=== PATIENT | male | born 2005 | race Caucasian/White ===

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

== ENCOUNTER 2024-02-26 12:42 | Emergency (ER) | payer OTHER ==
[~2024-02-26 12:42] MED LIST: ACET325C7 PO; IBUP-1955 PO
[2024-03-01] MEDS ORDERED: AMOX-430 PO (10:07)
[2024-03-01] MEDS ORDERED: GUAI600T53 PO (11:28)
[2024-03-01] MEDS ORDERED: ALBU8.5H8 INH (11:28)
== END 2024-02-26 13:14 | disposition home or self-care (01) ==
LOC: ER 12:46
DX: R50.9 Fever, unspecified (principal); Z53.21 Procedure and treatment not carried out due to patient leaving prior to being seen by health care provider

== ENCOUNTER 2024-02-28 21:15 | Inpatient (IN) | payer OTHER ==
[~2024-02-28] VITALS: Ht 185.4 cm; Wt 81.8 kg
[2024-02-28 22:40] LABS: BASOPHILS % (AUTO) 0.2 % (0.0-2.0); HEMATOCRIT 42 % (39-51); HEMOGLOBIN 14.1 g/dL (13.5-17.5); LYMPHOCYTES # (AUTO) 0.9 K/uL (0.8-4.8); LYMPHOCYTES % (AUTO) 14.2 % (20.0-44.0); MEAN CORPUSCULAR HEMOGLOBIN 29 PG (26.0-33.0); MEAN CORPUSCULAR HGB CONC 34 g/dl (31.0-36.0); MEAN CORPUSCULAR VOLUME 86 fL (80-96); MONOCYTES # (AUTO) 0.5 K/uL (0.1-1.30); MONOCYTES % (AUTO) 7.1 % (2.0-12.0); NEUTROPHILS # (AUTO) 5.1 K/uL (1.8-8.9); NEUTROPHILS % (AUTO) 78.5 % (43.0-81.0); PLATELET COUNT (AUTO) 158 K/uL (150-450); RED BLOOD CELL COUNT(AUTO) 4.85 MIL/uL (4.5-6.0); RED CELL DISTRIBUTION WIDTH 13.3 % (11.5-15.0); WHITE BLOOD COUNT (AUTO) 6.5 K/uL (4.3-11.0)
[2024-02-28 22:45] LABS: ERYTHROCYTE SEDIMENTATION RATE 34 MM/HR (0-15)
[2024-02-28 22:59] LABS: LACTIC ACID 0.8 mmol/L (0.4-2.0)
[2024-02-28 23:24] LABS: ALBUMIN 3.4 g/dL (3.4-5.0); BILIRUBIN,TOTAL 0.3 mg/dL (0.2-1.0); CALCIUM, SERUM 9.2 mg/dL (8.5-10.1); TOTAL PROTEIN, SERUM 7.6 g/dL (6.4-8.2)
[2024-02-28 23:28] LABS: APPEARANCE,URINE CLEAR (CLEAR); BILIRUBIN,URINE NEGATIVE (NEGATIVE); BLOOD, URINE TRACE Ery/uL (NEGATIVE); COLOR,URINE YELLOW (YELLOW); KETONES,URINE NEGATIVE (NEGATIVE); LEUKOCYTE ESTERASE ,URINE NEGATIVE (NEGATIVE); NITRITE, URINE NEGATIVE (NEGATIVE); PH,URINE 6.5 (5.0-8.0); PROTEIN,URINE NEGATIVE (NEGATIVE); UGLUCOSE NEGATIVE (NEGATIVE); UROBILINOGEN,URINE 0.2 EU/dL (0.2)
[2024-02-28 23:48] LABS: RBC,URINE 0-2 /HPF (0-2)
[2024-02-28 23:49] LABS: ADD URINE CULTURE NO; BACTERIA,URINE None seen /HPF (None Seen); SQUAMOUS EPITHELIAL CELL,UR None Seen /HPF (None Seen); WBC,URINE NONE SEEN /HPF (0-3)
[2024-02-29] MEDS ORDERED: PIPERACI/TAZO 3.375GM/D5W 50ML PB IV ONE (00:30)
[2024-02-29] MEDS ORDERED: CT SWABBABLE VALVE TRANS SET 1 EA INFUS.SET MC ONE (00:44)
[2024-02-29] MEDS ORDERED: IV NS 0.9% 250 ML IV ONE (00:44)
[2024-02-29] MEDS ORDERED: IOHEXOL-300 100 ML VIAL IV ONE (00:44)
[2024-02-29] MEDS: IV NS 0.9% 1,000 ML IV ONE (00:48)
[2024-02-29] MEDS: PIPERACILLIN /TAZOBACTAM 3.375 G in IV D5W 50 ML IV ONE (00:49)
[2024-02-29] MEDS ORDERED: Z GUARD REMEDY 4 OZ OINT TP PRN (02:30)
[2024-02-29] MEDS ORDERED: MAG HYDROX/AL HYDROX/SIMETH 30 ML UDC PO PRN (02:30)
[2024-02-29] MEDS ORDERED: ONDANSETRON HCL/PF 4 MG/2 ML VIAL IVP PRN (02:30)
[2024-02-29] MEDS ORDERED: MAGNESIUM HYDROXIDE 30 ML UDC PO PRN (02:30)
[2024-02-29] MEDS ORDERED: AZITHROMYCIN 500 MG VIAL ONE (02:37)
[2024-02-29] MEDS: AZITHROMYCIN 500 MG in IV D5W 250 ML IV ONE (02:52)
[2024-02-29] MEDS ORDERED: PANTOPRAZOLE 40 MG TABLET.DR PO ONE (07:45)
[2024-02-29] MEDS: PANTOPRAZOLE 40 MG TABLET.DR PO SCH (08:01)
[2024-02-29] MEDS ORDERED: ACET-2605 PO (08:02)
[2024-02-29] MEDS ORDERED: IBUP-1953 PO (08:02)
[2024-02-29] MEDS ORDERED: ASCO100058 PO (08:04)
[2024-02-29] MEDS ORDERED: CHOL100062 PO (08:04)
[2024-02-29] MEDS ORDERED: ZINC50TA69 PO (08:04)
[2024-02-29] MEDS ORDERED: ALBUTEROL FS 2.5 MG/3 ML VIAL.NEB ONE (08:11)
[2024-02-29 08:14] VITALS: O2SAT 97
[2024-02-29] MEDS: ALBUTEROL FS 2.5 MG/3 ML VIAL.NEB NEB PRN (08:14)
[2024-02-29 08:30] VITALS: O2SAT 100
[2024-02-29 08:48] LABS: BASOPHILS % (AUTO) 0.2 % (0.0-2.0); HEMATOCRIT 41 % (39-51); HEMOGLOBIN 13.8 g/dL (13.5-17.5); LYMPHOCYTES % (AUTO) 18.2 % (20.0-44.0); MEAN CORPUSCULAR HEMOGLOBIN 29 PG (26.0-33.0); MEAN CORPUSCULAR HGB CONC 34 g/dl (31.0-36.0); MEAN CORPUSCULAR VOLUME 86 fL (80-96); MONOCYTES # (AUTO) 0.4 K/uL (0.1-1.30); MONOCYTES % (AUTO) 6.4 % (2.0-12.0); NEUTROPHILS # (AUTO) 4.2 K/uL (1.8-8.9); NEUTROPHILS % (AUTO) 75.2 % (43.0-81.0); PLATELET COUNT (AUTO) 162 K/uL (150-450); RED BLOOD CELL COUNT(AUTO) 4.75 MIL/uL (4.5-6.0); RED CELL DISTRIBUTION WIDTH 13.4 % (11.5-15.0); WHITE BLOOD COUNT (AUTO) 5.5 K/uL (4.3-11.0)
[2024-02-29] MEDS ORDERED: ACETAMINOPHEN 325 MG TABLET ONE (09:06)
[2024-02-29] MEDS: ACETAMINOPHEN 325 MG TABLET PO PRN (09:13)
[2024-02-29 09:23] LABS: CALCIUM, SERUM 8.7 mg/dL (8.5-10.1); MAGNESIUM 2.3 mg/dL (1.8-2.4); PHOSPHORUS 2.8 mg/dL (2.5-4.9); POTASSIUM 4.2 mmol/L (3.5-5.1)
[2024-02-29 09:37] LABS: CREATININE 0.8 mg/dL (0.6-1.3)
[2024-02-29 10:15] VITALS: BP 119/66; TEMP 98.8; TEMP 98.9; O2SAT 95
[2024-02-29] MEDS: ZOSYN IVPB 3.375 G in IV D5W 50ml IV SCH (10:41)
[2024-02-29 16:00] VITALS: BP 129/72; TEMP 98.2; O2SAT 99
[2024-02-29] MEDS: CEFTRIAXONE 1 G in IV D5W 50 ML IV SCH (17:11)
[2024-02-29 20:00] VITALS: BP 118/62; TEMP 98.4; O2SAT 98
[2024-02-29 20:55] VITALS: BP 118/62; TEMP 98.4; O2SAT 98
[2024-03-01] MEDS ORDERED: PIPERACILLIN /TAZOBACTAM 3.375 G in IV D5W 50 ML IV SCH
[2024-03-01] MEDS: ZOSYN IVPB 3.375 G in IV D5W 50ml IV SCH (01:32)
[2024-03-01] MEDS ORDERED: AZITHROMYCIN 500 MG in IV D5W 250 ML IV SCH (02:00)
[2024-03-01 07:19] LABS: BASOPHILS % (AUTO) 0.4 % (0.0-2.0); EOSINOPHILS # (AUTO) 0.1 K/uL (0.0-0.7); EOSINOPHILS % (AUTO) 1.3 % (0.0-6.0); HEMATOCRIT 41 % (39-51); HEMOGLOBIN 13.7 g/dL (13.5-17.5); LYMPHOCYTES # (AUTO) 1.4 K/uL (0.8-4.8); LYMPHOCYTES % (AUTO) 30.1 % (20.0-44.0); MEAN CORPUSCULAR HEMOGLOBIN 29 PG (26.0-33.0); MEAN CORPUSCULAR HGB CONC 33 g/dl (31.0-36.0); MEAN CORPUSCULAR VOLUME 86 fL (80-96); MONOCYTES # (AUTO) 0.5 K/uL (0.1-1.30); MONOCYTES % (AUTO) 10.5 % (2.0-12.0); NEUTROPHILS # (AUTO) 2.7 K/uL (1.8-8.9); NEUTROPHILS % (AUTO) 57.7 % (43.0-81.0); PLATELET COUNT (AUTO) 188 K/uL (150-450); RED BLOOD CELL COUNT(AUTO) 4.82 MIL/uL (4.5-6.0); RED CELL DISTRIBUTION WIDTH 13.5 % (11.5-15.0); WHITE BLOOD COUNT (AUTO) 4.6 K/uL (4.3-11.0)
[2024-03-01 07:21] LABS: CALCIUM, SERUM 8.9 mg/dL (8.5-10.1); CREATININE 0.8 mg/dL (0.6-1.3); MAGNESIUM 2.5 mg/dL (1.8-2.4); PHOSPHORUS 3.5 mg/dL (2.5-4.9); POTASSIUM 4.4 mmol/L (3.5-5.1)
[2024-03-01 08:00] VITALS: BP 115/64; TEMP 98.6; O2SAT 98
[2024-03-01] MEDS ORDERED: AMOX-430 PO (10:07)
[2024-03-01] MEDS ORDERED: GUAI600T53 PO (11:28)
[2024-03-01] MEDS ORDERED: ALBU8.5H8 INH (11:28)
== END 2024-03-01 12:20 | disposition home or self-care (01) | DRG 137 ==
LOC: ER 21:17 → TRANSITION 02-29 05:17 → MED 02-29 09:25
PROVIDERS: ADMIT Nurse Practitioner Acute Care; ATTEND Nurse Practitioner Acute Care
DX: J15.69 Pneumonia due to other Gram-negative bacteria (principal); Z28.310 Unvaccinated for COVID-19
CPT/HCPCS: 36415; 70450-TC; 71045-TC; 71260-TC; 80048-TC; 80053-TC; 81001; 83605-TC; 83735-TC; 83880; 84100-TC; 84484-TC; 85025-TC; 85652-TC; 87040-TC; A4223; G0378; J0456; J0696; J2405; J2543; J7030; J7050; J7060; Q9967